=== PATIENT | female | born 1955 | race Asian ===

== ENCOUNTER 2022-09-03 10:15 | Emergency (ER) | payer OTHER ==
[~2022-09-03] VITALS: Ht 157.5 cm; Wt 47.2 kg
[2022-09-03 10:24] VITALS: BP 137/70; PULSE 94; RESP 18; TEMP 98; O2SAT 99
--- NOTE | 2022-09-03 10:32 | NUR ---
PT AMBULATED TO BED 8.
[2022-09-03 10:43] VITALS: O2SAT 98
[2022-09-03] MEDS ORDERED: POLY17PD72 PO (10:47)
[2022-09-03] MEDS ORDERED: DOCU-299 PO (10:48)
[2022-09-03 10:58] VITALS: BP 143/83; PULSE 88; RESP 14; O2SAT 98
--- NOTE | 2022-09-03 11:09 | NUR ---
The patient's care was reviewed and supervised by [facility], RN.
== END 2022-09-03 11:09 | disposition home or self-care (01) ==
LOC: MED 10:15
DX: I10 Essential (primary) hypertension (principal); K59.00 Constipation, unspecified; Z79.899 Other long term (current) drug therapy
CPT/HCPCS: 99282